=== PATIENT | female | born 1995 | race African-American/Black ===

== ENCOUNTER 2017-05-27 17:13 | Emergency (ER) | payer OTHER ==
[~2017-05-27] VITALS: Ht 154.9 cm; Wt 94.8 kg
[~2017-05-27 17:13] MED LIST: Doxycycline Hyclate PO; FLUT1DIS3 INH; PRED-220 PO; VENTOLIN HFA18 GM INH
--- NOTE | 2017-05-27 19:26 | PHYS DOC ---
Past Medical History Past Medical History: Asthma Additional Past Medical Histor: seasonal allergies Past Surgical History: No Surgical History Alcohol Use: None Drug Use: None Adult General Chief Complaint Chief Complaint: ABDOMINAL PAIN HPI HPI Patient is a 21 year old -[place] who presents with right lower quadrant pain. She states it started about 3 days ago around her bellybutton and now is in the right lower quadrant. She states she's had numerous nonbloody nonbilious vomiting. She denies any constipation or diarrhea. She is also complaining of a mild headache to the frontal aspect of her head. She denies any vaginal bleeding or discharge. Review of Systems Review of Systems Constitutional: Denies fever or chills [] Eyes: Denies change in visual acuity, redness, or eye pain [] HENT: Denies nasal congestion or sore throat [] Respiratory: Denies cough or shortness of breath [] Cardiovascular: No additional information not addressed in HPI [] GI: Positive for abdominal pain, nausea, vomiting, denies any bloody stools or diarrhea [] : Denies dysuria or hematuria [] Musculoskeletal: Denies back pain or joint pain [] Integument: Denies rash or skin lesions [] Neurologic: Denies headache, focal weakness or sensory changes [] Endocrine: Denies polyuria or polydipsia [] Current Medications Current Medications Current Medications Medications (Trade) Dose Ordered Sig/Andrew Start Time Stop Time Status Last Admin Dose Admin Info (Do NOT chart on this entry -- for MONITORING) 1 each PRN DAILY PRN 05/27/17 20:30 05/29/17 20:29 Iohexol (Omnipaque 300 Mg/ml) 75 ml 1X ONCE 05/27/17 20:15 05/27/17 20:16 DC 05/27/17 20:25 75 ML Morphine Sulfate 4 mg 1X ONCE 05/27/17 19:30 05/27/17 19:31 DC 05/27/17 19:34 4 MG Ondansetron HCl (Zofran) 4 mg 1X ONCE 05/27/17 19:30 05/27/17 19:31 DC 05/27/17 19:34 4 MG Sodium Chloride 1,000 ml @ 1,000 mls/hr 1X ONCE 05/27/17 19:45 05/27/17 20:44 DC 05/27/17 19:37 1,000 MLS/HR Allergies Allergies Allergies Coded Allergies Type Severity Reaction Last Updated Verified No Known Drug Allergies 10/02/13 No Physical Exam Physical Exam Constitutional: Well developed, well nourished, no acute distress, non-toxic appearance. [] HENT: Normocephalic, atraumatic, bilateral external ears normal, oropharynx moist, no oral exudates, nose normal. [] Eyes: PERRLA, EOMI, conjunctiva normal, no discharge. [] Neck: Normal range of motion, no tenderness, supple, no stridor. [] Cardiovascular:Heart rate regular rhythm, no murmur [] Lungs & Thorax: Bilateral breath sounds clear to auscultation [] Abdomen/pelvic: Bowel sounds normal, soft, moderate tender to palpation right lower quadrant, no rebound or guarding, no masses, no pulsatile masses. Normal external genitalia, no bleeding noted, no cervical motion tenderness. Skin: Warm, dry, no erythema, no rash. [] Back: No tenderness, no CVA tenderness. [] Extremities: No tenderness, no cyanosis, no clubbing, ROM intact, no edema. [] Neurologic: Alert and oriented X 3, normal motor function, normal sensory function, no focal deficits noted. [] Psychologic: Affect normal, judgement normal, mood normal. [] Current Patient Data Vital Signs Vital Signs Date Time Temp Pulse Resp B/P (MAP) Pulse Ox O2 Delivery O2 Flow Rate FiO2 05/27/17 19:34 18 98 Room Air 05/27/17 19:03 98.7 88 124/60 (81) 98.7 Lab Values Laboratory Tests Test 05/27/17 18:30 05/27/17 18:55 05/27/17 19:30 POC Urine HCG, Qualitative Hcg negative (Negative) Urine Collection Type Unknown Urine Color Yellow Urine Clarity Clear Urine pH 6.5 Urine Specific [place] >=1.030 Urine Protein Negative mg/dL (NEG-TRACE) Urine Glucose (UA) Negative mg/dL (NEG) Urine Ketones (Stick) Negative mg/dL (NEG) Urine Blood Negative (NEG) Urine Nitrite Negative (NEG) Urine Bilirubin Negative (NEG) Urine Urobilinogen Dipstick 0.2 mg/dL (0.2 mg/dL) Urine Leukocyte Esterase Negative (NEG) Urine RBC Occ /HPF (0-2) Urine WBC Occ /HPF (0-4) Urine Squamous Epithelial Cells Occ /LPF Urine Bacteria 0 /HPF (0-FEW) Urine Mucus Slight /LPF Urine Test Negative (NEG) White Blood Count 9.6 x10^3/uL (4.0-11.0) Red Blood Count 4.32 x10^6/uL (3.50-5.40) Hemoglobin 12.4 g/dL (12.0-15.5) Hematocrit 37.8 % (36.0-47.0) Mean Corpuscular Volume 87 fL (79-100) Mean Corpuscular Hemoglobin 29 pg (25-35) Mean Corpuscular Hemoglobin Concent 33 g/dL (31-37) Red Cell Distribution Width 13.1 % (11.5-14.5) Platelet Count 284 x10^3/uL (140-400) Neutrophils (%) (Auto) 60 % (31-73) Lymphocytes (%) (Auto) 29 % (24-48) Monocytes (%) (Auto) 7 % (0-9) Eosinophils (%) (Auto) 4 % (0-3) H Basophils (%) (Auto) 1 % (0-3) Neutrophils # (Auto) 5.8 x10^3uL (1.8-7.7) Lymphocytes # (Auto) 2.8 x10^3/uL (1.0-4.8) Monocytes # (Auto) 0.7 x10^3/uL (0.0-1.1) Eosinophils # (Auto) 0.4 x10^3/uL (0.0-0.7) Basophils # (Auto) 0.1 x10^3/uL (0.0-0.2) Sodium Level 142 mmol/L (136-145) Potassium Level 4.0 mmol/L (3.5-5.1) Chloride Level 105 mmol/L (98-107) Carbon Dioxide Level 31 mmol/L (21-32) Anion Gap 6 (6-14) Blood Urea Nitrogen 7 mg/dL (7-20) Creatinine 0.7 mg/dL (0.6-1.0) Estimated GFR (Cockcroft-Gault) 127.8 Glucose Level 87 mg/dL (70-99) Calcium Level 8.8 mg/dL (8.5-10.1) Total Bilirubin 0.1 mg/dL (0.2-1.0) L Direct Bilirubin 0.1 mg/dL (0.0-0.2) Aspartate Amino Transferase (AST) 16 U/L (15-37) Alanine Aminotransferase (ALT) 21 U/L (14-59) Alkaline Phosphatase 73 U/L (46-116) Total Protein 7.1 g/dL (6.4-8.2) Albumin 3.6 g/dL (3.4-5.0) Lipase 214 U/L (73-393) Laboratory Tests 05/27/17 19:30 Laboratory Tests 05/27/17 19:30 Microbiology 05/27/17 Wet Prep - Final, Complete EKG EKG [] Radiology/Procedures Radiology/Procedures [facility] [address] [place], [place] [id number] IMAGING REPORT Signed PATIENT: NOE JOHNSON ACCOUNT: [id number] : 1995 LOCATION: ER AGE: 21 SEX: F EXAM STATUS: REG ER ORD. PHYSICIAN: THIAGO WHEATLEY MD REASON: abd pain PROCEDURE: CT ABD PELV W/ IV CONTRST ONLY Indication: Right lower quadrant pain for 2 days. Technique: Axial images and coronal and sagittal reformatted images are provided. 75 mL of intravenous Omnipaque 300 was administered without complication. No comparison is available. One or more of the following individualized dose reduction techniques were utilized for this examination: 1. Automated exposure control 2. Adjustment of the mA and/or kV according to patient size 3. Use of iterative reconstruction technique Findings: Lung bases are clear. There is no pleural effusion. Heart is not enlarged. Liver is unremarkable. Gallbladder is normal in appearance. Spleen is not enlarged. Pancreas and adrenals are unremarkable. Kidneys are symmetrically perfused. Aorta is normal caliber. There is no dilated small bowel loop or air-fluid level. Colon is grossly unremarkable. Appendix is normal in appearance, better evaluated on coronal reformats. The tip is difficult to visualize. There is no adjacent inflammatory stranding. Lack of oral contrast limits evaluation of bowel. There is no bladder calculus. There is no adnexal mass. There is no free pelvic fluid. Bony structures are intact. IMPRESSION: 1. No acute abdominal findings. Normal appendix. Electronically signed by: Marlon De La Cruz MD (05/27/2017 8:43 PM) [facility] DICTATED and SIGNED BY: MARLON DE LA CRUZ MD DATE: 05/27/172036 CC: THIAGO WHEATLEY MD; NO PCP ~ RUN DATE: 05/27/17 PAGE 1 RUN TIME: 2007 [facility] [address] [place] [address] Seven Saini M.D., [employer] PATIENT: NOE JOHNSON ACCT: [id number] LOC: PIERO U : [id number] AGE/SX: ROOM: REG : 05/27/[address]: THIAGO WHEATLEY MD : 1995 BED: DIS : STATUS: REG ER TLOC: SPEC #: [id number] KYRIE: 05/27/17 STATUS: COMP REQ #: [id number] RECD: 05/27/[address]: THIAGO WHEATLEY MD SOURCE: VAGINAL ENTR: 05/27/[address]: JEANCARLOS KELLY SPDESC: ORDERED: WET PREP COMMENTS: Has specimen been collected/obtained? Y Procedure Result WET PREP Final YEAST NONE SEEN TRICHOMONAS NONE SEEN CLUE CELLS NONE SEEN WBCS OCCASIONAL RBCS NO RBCS SEEN SQUAMOUS EPS MODERATE END OF REPORT Impressions: Abdominal pain Course & Med Decision Making Course & Med Decision Making Pertinent Labs and Imaging studies reviewed. (See chart for details) Labs are unremarkable. CT of the pelvis does not show acute appendicitis or other abnormalities. Pelvic ultrasound is pending at this time. Patient being checked out to Dr. Valdes for final disposition. Dragon Disclaimer Dragon Disclaimer This electronic medical record was generated, in whole or in part, using a voice recognition dictation system. Departure Departure Referrals: NO PCP (PCP) THIAGO WHEATLEY MD May 27, 2017 19:26
[2017-05-27] MEDS ORDERED: ONDANSETRON PF 4 MG/2 ML VIAL. IV ONE (19:30)
[2017-05-27] MEDS ORDERED: MORPHINE SULFATE 4 MG/ML DISP.SYRIN. IV ONE (19:30)
[2017-05-27 19:44] LABS: BILIRUBIN,URINE NEGATIVE (NEG); GLUCOSE,URINE NEGATIVE (NEG); NITRITE,URINE NEGATIVE (NEG); PH,URINE 6.5; PROTEIN,URINE NEGATIVE (NEG-TRACE); UROBILINOGEN,URINE 0.2 mg/dL (0.2 mg/dL)
[2017-05-27] MEDS ORDERED: IV NORMAL SALINE 1000ML BAG 1,000 ML IV ONE (19:45)
[2017-05-27 19:53] LABS: BASO # 0.1 x10^3/uL (0.0-0.2); BASO % 1 % (0-3); EOS % 4 % (0-3); HEMATOCRIT 37.8 % (36.0-47.0); HEMOGLOBIN 12.4 g/dL (12.0-15.5); LYMPH # 2.8 x10^3/uL (1.0-4.8); LYMPH % 29 % (24-48); MEAN CORPUSCULAR HEMOGLOBIN 29 pg (25-35); MEAN CORPUSCULAR HGB CONC 33 g/dL (31-37); MEAN CORPUSCULAR VOLUME 87 fL (79-100); MONO % 7 % (0-9); NEUT % 60 % (31-73); PLATELET COUNT 284 x10^3/uL (140-400); RED BLOOD COUNT 4.32 x10^6/uL (3.50-5.40); RED CELL DISTRIBUTION WIDTH 13.1 % (11.5-14.5); WHITE BLOOD COUNT 9.6 x10^3/uL (4.0-11.0)
[2017-05-27 20:02] LABS: NEG OBC UR NEG; POS OBC UR POS
[2017-05-27 20:03] LABS: RBC,URINE OCC /HPF (0-2); WBC,URINE OCC /HPF (0-4)
[2017-05-27 20:04] LABS: BACTERIA,URINE 0 /HPF (0-FEW); SQUAMOUS EPITHELIAL CELL,UR OCC /LPF
[2017-05-27 20:05] LABS: CALCIUM 8.8 mg/dL (8.5-10.1); CREATININE 0.7 mg/dL (0.6-1.0); GFR 127.8
[2017-05-27 20:11] LABS: ALBUMIN 3.6 g/dL (3.4-5.0); DIRECT BILIRUBIN 0.1 mg/dL (0.0-0.2); TOTAL BILIRUBIN 0.1 mg/dL (0.2-1.0); TOTAL PROTEIN 7.1 g/dL (6.4-8.2)
[2017-05-27] MEDS ORDERED: IOHEXOL 300 MG/ML 75 ML VIAL IV ONE (20:15)
[2017-05-27] MEDS ORDERED: CONTRAST GIVEN MC PRN (20:30)
--- NOTE | 2017-05-27 20:46 | RAD ---
Indication: Right lower quadrant pain for 2 days. Technique: Axial images and coronal and sagittal reformatted images are provided. 75 mL of intravenous Omnipaque 300 was administered without complication. No comparison is available. One or more of the following individualized dose reduction techniques were utilized for this examination: 1. Automated exposure control 2. Adjustment of the mA and/or kV according to patient size 3. Use of iterative reconstruction technique Findings: Lung bases are clear. There is no pleural effusion. Heart is not enlarged. Liver is unremarkable. Gallbladder is normal in appearance. Spleen is not enlarged. Pancreas and adrenals are unremarkable. Kidneys are symmetrically perfused. Aorta is normal caliber. There is no dilated small bowel loop or air-fluid level. Colon is grossly unremarkable. Appendix is normal in appearance, better evaluated on coronal reformats. The tip is difficult to visualize. There is no adjacent inflammatory stranding. Lack of oral contrast limits evaluation of bowel. There is no bladder calculus. There is no adnexal mass. There is no free pelvic fluid. Bony structures are intact. IMPRESSION: 1. No acute abdominal findings. Normal appendix. Electronically signed by: Marlon De La Cruz MD (05/27/2017 8:43 PM) [facility]
--- NOTE | 2017-05-27 21:46 | RAD ---
Pelvic ultrasound History: Pelvic pain. Comparison: None. Technique: Transabdominal ultrasound was performed to evaluate the uterine fundus. Endovaginal imaging was performed to evaluate optimally the endometrial canal and lower uterine segment. TRANSABDOMINAL IMAGING Findings: The uterus measures 8.4 cm in length and is unremarkable. The endometrium appears unremarkable. Neither ovary is visualized. ENDOVAGINAL IMAGING Findings: The uterus measures 8.8 cm in length and is unremarkable. The endometrium measures 9 mm. Right ovary measures 3.7 x 1.7 x 1.5 cm and demonstrates several small follicles. The left ovary measures 2.0 x 4.1 x 2.0 cm and demonstrates several small follicles. No adnexal masses are identified. Small amount of physiologic free fluid is present in the pelvis. Both ovaries demonstrate normal vascular flow upon Doppler interrogation and are without evidence of torsion. Impression: 1. Unremarkable pelvic ultrasound. Electronically signed by: Jordi Verduzco MD (05/27/2017 9:43 PM) [facility]
[2017-05-27 22:30] VITALS: BP 121/62
== END 2017-05-27 22:50 | disposition home or self-care (01) ==
LOC: ER 17:13
DX: R10.31 Right lower quadrant pain (principal); R51 Headache; R11.10 Vomiting, unspecified; J45.909 Unspecified asthma, uncomplicated
CPT/HCPCS: 36415; 74177; 76856; 80048; 80076; 81001; 81025; 83690; 85025; 87491; 87591; 96361; 96374; 96375; 99285; J2270; J2405; J7030; Q0111; Q9967

== ENCOUNTER 2017-12-09 16:34 | Emergency (ER) | payer SELFPAY, OTHER ==
[2017-12-09 17:06] LABS: URINE HCG POC HCG NEGATIVE (Negative)
[2017-12-09 17:31] LABS: ADD MAN DIFF? NO; BILIRUBIN,URINE NEGATIVE (NEG); CLARITY,URINE CLOUDY; COLOR,URINE YELLOW; GLUCOSE,URINE NEGATIVE (NEG); NITRITE,URINE NEGATIVE (NEG); PROTEIN,URINE NEGATIVE (NEG-TRACE); UROBILINOGEN,URINE 0.2 mg/dL (0.2 mg/dL)
[2017-12-09 17:33] LABS: BASO # 0.1 x10^3/uL (0.0-0.2); BASO % 1 % (0-3); EOS # 0.5 x10^3/uL (0.0-0.7); EOS % 7 % (0-3); HEMATOCRIT 41.6 % (36.0-47.0); HEMOGLOBIN 13.9 g/dL (12.0-15.5); LYMPH # 2.2 x10^3/uL (1.0-4.8); LYMPH % 31 % (24-48); MEAN CORPUSCULAR HEMOGLOBIN 29 pg (25-35); MEAN CORPUSCULAR HGB CONC 33 g/dL (31-37); MEAN CORPUSCULAR VOLUME 87 fL (79-100); MONO # 0.5 x10^3/uL (0.0-1.1); MONO % 7 % (0-9); NEUT # 3.8 x10^3uL (1.8-7.7); NEUT % 54 % (31-73); PLATELET COUNT 295 x10^3/uL (140-400); RED BLOOD COUNT 4.81 x10^6/uL (3.50-5.40); RED CELL DISTRIBUTION WIDTH 13.2 % (11.5-14.5); WHITE BLOOD COUNT 7.1 x10^3/uL (4.0-11.0)
[2017-12-09] MEDS: IPRATRPIUM/ALBUTEROL 0.5/2.5MG 3 ML NEBU. NEB (17:40)
[2017-12-09] MEDS ORDERED: CONTRAST GIVEN MC (17:45)
[2017-12-09] MEDS: methylPREDNISolone SOD SUCC PF 125 MG/2 ML VIAL. IV (17:51)
[2017-12-09] MEDS: IV NORMAL SALINE 1000ML BAG 1,000 ML IV (17:52)
[2017-12-09 17:53] LABS: ANION GAP 12 (6-14); BLOOD UREA NITROGEN 8 mg/dL (7-20); BUN/CREATININE RATIO 11 (6-20); CALCIUM 9.2 mg/dL (8.5-10.1); CARBON DIOXIDE 25 mmol/L (21-32); CHLORIDE 106 mmol/L (98-107); CREATININE 0.7 mg/dL (0.6-1.0); GFR 126.6; GLUCOSE 90 mg/dL (70-99); POTASSIUM 4.2 mmol/L (3.5-5.1); SODIUM 143 mmol/L (136-145)
[2017-12-09 17:56] LABS: AMORPHOUS SEDIMENT,UR PRESENT /HPF; BACTERIA,URINE 0 /HPF (0-FEW); RBC,URINE 0 /HPF (0-2); SQUAMOUS EPITHELIAL CELL,UR OCC /LPF; WBC,URINE OCC /HPF (0-4)
[2017-12-09 17:58] LABS: ALBUMIN 3.7 g/dL (3.4-5.0); ALBUMIN/GLOBULIN RATIO 0.9 (1.0-1.7); ALK PHOS 67 U/L (46-116); ALT (SGPT) 20 U/L (14-59); AST (SGOT) 16 U/L (15-37); LIPASE 169 U/L (73-393); TOTAL BILIRUBIN 0.1 mg/dL (0.2-1.0); TOTAL PROTEIN 7.8 g/dL (6.4-8.2)
[2017-12-09] MEDS: IOHEXOL 300 MG/ML 100ML VIAL. IV (18:15)
== END 2017-12-09 19:25 | disposition home or self-care (01) ==
LOC: ER 16:34
DX: J06.9 Acute upper respiratory infection, unspecified (principal); J45.901 Unspecified asthma with (acute) exacerbation; R10.31 Right lower quadrant pain; R10.11 Right upper quadrant pain
CPT/HCPCS: 36415; 74177; 80053; 81001; 81025; 83690; 85025; 94640; 96361; 96374; 99285-25; J2930; J7030; J7620; Q9967

== ENCOUNTER 2018-01-27 08:40 | Emergency (ER) | payer SELFPAY ==
[2018-01-27 09:04] LABS: URINE HCG POC HCG POSITIVE (Negative)
[2018-01-27 09:11] LABS: BILIRUBIN,URINE NEGATIVE (NEG); CLARITY,URINE CLEAR; COLOR,URINE YELLOW; GLUCOSE,URINE NEGATIVE (NEG); NITRITE,URINE NEGATIVE (NEG); PH,URINE 7.5; PROTEIN,URINE NEGATIVE (NEG-TRACE); UROBILINOGEN,URINE 0.2 mg/dL (0.2 mg/dL)
[2018-01-27 09:21] LABS: BACTERIA,URINE FEW /HPF (0-FEW); SQUAMOUS EPITHELIAL CELL,UR OCC /LPF; WBC,URINE RARE /HPF (0-4)
[2018-01-27 09:23] LABS: NEG OBC UR NEG; POS OBC UR POS; U PREG PATIENT POSITIVE (NEG)
[2018-01-28 14:34] LABS: CHLAMYDIA PROBE Negative (Negative); GC PROBE Negative (Negative)
[2018-01-29 14:06] LABS: STREP B BY PCR SEE SEPARATE REPORT
== END 2018-01-27 11:46 | disposition home or self-care (01) ==
LOC: ER 08:40
DX: O20.0 Threatened abortion (principal); O99.511 Diseases of the respiratory system complicating pregnancy, first trimester; J45.909 Unspecified asthma, uncomplicated; Z3A.01 Less than 8 weeks gestation of pregnancy
CPT/HCPCS: 36415; 76801; 76817; 81001; 81025; 84702; 84703; 86850; 86900; 86901; 87491; 87591; 87653; 99285-25; Q0111

== ENCOUNTER 2018-01-27 22:26 | Emergency (ER) | payer SELFPAY ==
[2018-01-27] MEDS: fentaNYL PF VIAL 100 MCG/2 ML VIAL IV (23:52)
[2018-01-27] MEDS: IV NORMAL SALINE 1000ML BAG 1,000 ML IV (23:52)
[2018-01-27] MEDS: ONDANSETRON PF 4 MG/2 ML VIAL. IV (23:52)
[2018-01-28 00:07] LABS: AGAP ISTAT 16 mmol/L (6-14); BUN ISTAT 4 mg/dL (8-26); CHLORIDE ISTAT 106 mmol/L (98-110); CREATININE ISTAT 0.5 mg/dL (0.5-1.4); GLUCOSE ISTAT 82 mg/dL (70-99); HEMATOCRIT ISTAT 39 % (36-40); HEMOGLOBIN ISTAT 13.3 g/dL (12-15); ION CA ISTAT 1.12 mmol/L (1.13-1.32); POTASSIUM ISTAT 3.4 mmol/L (3.5-5.0); SODIUM ISTAT 142 mmol/L (135-145); TOT CO2 ISTAT 25 mmol/L (23-32)
[2018-01-28] MEDS: IBUPROFEN 600 MG TABLET. PO (00:53)
[2018-01-28] MEDS: oxyCODONE/APAP 7.5/325 1 TAB TABLET PO (00:53)
[2018-01-28] MEDS: fentaNYL PF VIAL 100 MCG/2 ML VIAL IV (00:54)
== END 2018-01-28 01:09 | disposition home or self-care (01) ==
LOC: ER 01-28 01:09
DX: O03.9 Complete or unspecified spontaneous abortion without complication (principal); O99.511 Diseases of the respiratory system complicating pregnancy, first trimester; J45.909 Unspecified asthma, uncomplicated; Z3A.00 Weeks of gestation of pregnancy not specified
CPT/HCPCS: 76801; 80047; 96361; 96374; 96375; 99284-25; J2405; J3010; J7030

== ENCOUNTER 2018-02-24 15:48 | Emergency (ER) | payer SELFPAY ==
[2018-02-24] MEDS: IPRATRPIUM/ALBUTEROL 0.5/2.5MG 3 ML NEBU. NEB ×2 (16:35)
[2018-02-24] MEDS: predniSONE 10 MG TABLET PO (16:47)
== END 2018-02-24 17:52 | disposition home or self-care (01) ==
LOC: ER 15:48
DX: J45.901 Unspecified asthma with (acute) exacerbation (principal)
CPT/HCPCS: 94640; 99284; J7512; J7620

== ENCOUNTER 2018-04-03 14:49 | Emergency (ER) | payer SELFPAY ==
[2018-04-03] MEDS: PENICILLIN G BENZATHINE LA 1,200,000 UNIT/2 ML DISP.SYRIN. IM (15:49)
== END 2018-04-03 16:45 | disposition home or self-care (01) ==
LOC: ER 16:45
DX: J02.9 Acute pharyngitis, unspecified (principal)
CPT/HCPCS: 96372; 99283; J0561

== ENCOUNTER 2018-07-06 13:45 | Emergency (ER) | payer OTHER ==
[~2018-07-06] VITALS: Ht 154.9 cm; Wt 88.0 kg
[~2018-07-06 13:45] MED LIST changes: +ALBU2.5V14 NEB; +AMOX875T PO; +ONDA4TAB10 PO; +OXYC-327 PO; +PRED20TA PO; +PRED50TA PO; +PROAIR HFA8.5 GM INH
[2018-07-06 14:55] LABS: BILIRUBIN,URINE NEGATIVE (NEG); CLARITY,URINE CLEAR; COLOR,URINE YELLOW; NITRITE,URINE NEGATIVE (NEG); PROTEIN,URINE NEGATIVE (NEG-TRACE); UROBILINOGEN,URINE 0.2 mg/dL (0.2 mg/dL)
[2018-07-06 15:22] LABS: BACTERIA,URINE 0 /HPF (0-FEW); RBC,URINE OCC /HPF (0-2); SQUAMOUS EPITHELIAL CELL,UR FEW /LPF; WBC,URINE OCC /HPF (0-4)
[2018-07-06 15:28] LABS: BASO # 0.1 x10^3/uL (0.0-0.2); BASO % 1 % (0-3); EOS # 0.4 x10^3/uL (0.0-0.7); EOS % 5 % (0-3); HEMATOCRIT 38.2 % (36.0-47.0); LYMPH # 2.1 x10^3/uL (1.0-4.8); LYMPH % 24 % (24-48); MEAN CORPUSCULAR HEMOGLOBIN 30 pg (25-35); MEAN CORPUSCULAR HGB CONC 34 g/dL (31-37); MEAN CORPUSCULAR VOLUME 87 fL (79-100); MONO # 0.7 x10^3/uL (0.0-1.1); MONO % 8 % (0-9); NEUT # 5.3 x10^3uL (1.8-7.7); NEUT % 62 % (31-73); PLATELET COUNT 269 x10^3/uL (140-400); RED CELL DISTRIBUTION WIDTH 13.2 % (11.5-14.5); WHITE BLOOD COUNT 8.5 x10^3/uL (4.0-11.0)
[2018-07-06 15:45] LABS: CALCIUM 9.3 mg/dL (8.5-10.1); CREATININE 0.5 mg/dL (0.6-1.0); GFR 186.7; POTASSIUM 3.4 mmol/L (3.5-5.1)
[2018-07-06 15:50] LABS: ALBUMIN 3.6 g/dL (3.4-5.0); ALBUMIN/GLOBULIN RATIO 0.9 (1.0-1.7); TOTAL BILIRUBIN 0.2 mg/dL (0.2-1.0); TOTAL PROTEIN 7.8 g/dL (6.4-8.2)
--- NOTE | 2018-07-06 16:06 | PHYS DOC ---
Past Medical History Past Medical History: No Pertinent History, Asthma Additional Past Medical Histor: seasonal allergies Past Surgical History: No Surgical History Alcohol Use: None Drug Use: None Adult General Chief Complaint Chief Complaint: ABDOMINAL PAIN IN HPI HPI Patient is a 22 year old female with no significant medical history who presents today complaining of abdominal cramping and . Patient is also complaining of spotting yesterday. Patient states she is roughly 10 weeks 4 para 3. She states she's had one miscarriage. Patient denies any nausea vomiting. Denies any concerns for STDs. Review of Systems Review of Systems Constitutional: Denies fever or chills [] Eyes: Denies change in visual acuity, redness, or eye pain [] HENT: Denies nasal congestion or sore throat [] Respiratory: Denies cough or shortness of breath [] Cardiovascular: No additional information not addressed in HPI [] GI: Reports abdominal pain and vaginal spotting in , denies, nausea, vomiting, bloody stools or diarrhea [] : Denies dysuria or hematuria [] Musculoskeletal: Denies back pain or joint pain [] Integument: Denies rash or skin lesions [] Neurologic: Denies headache, focal weakness or sensory changes [] Endocrine: Denies polyuria or polydipsia [] All other systems were reviewed and found to be within normal limits, except as documented in this note. Allergies Allergies Allergies Coded Allergies Type Severity Reaction Last Updated Verified No Known Drug Allergies 10/02/13 No Physical Exam Physical Exam Constitutional: Well developed, well nourished, no acute distress, non-toxic appearance. [] HENT: Normocephalic, atraumatic, bilateral external ears normal, oropharynx moist, no oral exudates, nose normal. [] Eyes: PERRLA, EOMI, conjunctiva normal, no discharge. [] Neck: Normal range of motion, no tenderness, supple, no stridor. [] Cardiovascular:Heart rate regular rhythm, no murmur [] Lungs & Thorax: Bilateral breath sounds clear to auscultation [] Abdomen: Bowel sounds normal, soft, no tenderness, no masses, no pulsatile masses. [] Pelvic exam External pelvic appears normal, cervix is closed, no CMT, no adnexal tenderness , no vaginal bleeding, trace amount of white discharge in the vaginal vault Skin: Warm, dry, no erythema, no rash. [] Back: No tenderness, no CVA tenderness. [] Extremities: No tenderness, no cyanosis, no clubbing, ROM intact, no edema. [] Neurologic: Alert and oriented X 3, normal motor function, normal sensory function, no focal deficits noted. [] Psychologic: Affect normal, judgement normal, mood normal. [] Current Patient Data Vital Signs Vital Signs Date Time Temp Pulse Resp B/P (MAP) Pulse Ox O2 Delivery O2 Flow Rate FiO2 07/06/18 14:48 98.5 100 18 138/77 (97) 100 Room Air 98.5 Lab Values Laboratory Tests Test 07/06/18 14:35 07/06/18 14:45 07/06/18 14:50 Urine Collection Type Unknown Urine Color Yellow Urine Clarity Clear Urine pH 8.0 Urine Specific [place] 1.025 Urine Protein Negative mg/dL (NEG-TRACE) Urine Glucose (UA) Negative mg/dL (NEG) Urine Ketones (Stick) Negative mg/dL (NEG) Urine Blood Negative (NEG) Urine Nitrite Negative (NEG) Urine Bilirubin Negative (NEG) Urine Urobilinogen Dipstick 0.2 mg/dL (0.2 mg/dL) Urine Leukocyte Esterase Negative (NEG) Urine RBC Occ /HPF (0-2) Urine WBC Occ /HPF (0-4) Urine Squamous Epithelial Cells Few /LPF Urine Bacteria 0 /HPF (0-FEW) Urine Mucus Marked /LPF POC Urine HCG, Qualitative Hcg positive (Negative) White Blood Count 8.5 x10^3/uL (4.0-11.0) Red Blood Count 4.40 x10^6/uL (3.50-5.40) Hemoglobin 13.0 g/dL (12.0-15.5) Hematocrit 38.2 % (36.0-47.0) Mean Corpuscular Volume 87 fL (79-100) Mean Corpuscular Hemoglobin 30 pg (25-35) Mean Corpuscular Hemoglobin Concent 34 g/dL (31-37) Red Cell Distribution Width 13.2 % (11.5-14.5) Platelet Count 269 x10^3/uL (140-400) Neutrophils (%) (Auto) 62 % (31-73) Lymphocytes (%) (Auto) 24 % (24-48) Monocytes (%) (Auto) 8 % (0-9) Eosinophils (%) (Auto) 5 % (0-3) H Basophils (%) (Auto) 1 % (0-3) Neutrophils # (Auto) 5.3 x10^3uL (1.8-7.7) Lymphocytes # (Auto) 2.1 x10^3/uL (1.0-4.8) Monocytes # (Auto) 0.7 x10^3/uL (0.0-1.1) Eosinophils # (Auto) 0.4 x10^3/uL (0.0-0.7) Basophils # (Auto) 0.1 x10^3/uL (0.0-0.2) Maternal Serum HCG Beta Subunit 740050 mIU/mL (0-5) H Sodium Level 138 mmol/L (136-145) Potassium Level 3.4 mmol/L (3.5-5.1) L Chloride Level 102 mmol/L (98-107) Carbon Dioxide Level 26 mmol/L (21-32) Anion Gap 10 (6-14) Blood Urea Nitrogen 4 mg/dL (7-20) L Creatinine 0.5 mg/dL (0.6-1.0) L Estimated GFR (Cockcroft-Gault) 186.7 BUN/Creatinine Ratio 8 (6-20) Glucose Level 66 mg/dL (70-99) L Calcium Level 9.3 mg/dL (8.5-10.1) Total Bilirubin 0.2 mg/dL (0.2-1.0) Aspartate Amino Transferase (AST) 16 U/L (15-37) Alanine Aminotransferase (ALT) 19 U/L (14-59) Alkaline Phosphatase 48 U/L (46-116) Total Protein 7.8 g/dL (6.4-8.2) Albumin 3.6 g/dL (3.4-5.0) Albumin/Globulin Ratio 0.9 (1.0-1.7) L Laboratory Tests 07/06/18 14:50 Laboratory Tests 07/06/18 14:50 Microbiology 07/06/18 Wet Prep - Final, Complete EKG EKG [] Radiology/Procedures Radiology/Procedures []PROCEDURE: OB <14 WKS W/TV EXAM: Obstetrics sonogram. HISTORY: Pain. TECHNIQUE: Transabdominal and transvaginal sonographic imaging of the pelvis was performed. COMPARISON: None. FINDINGS: There is a single intrauterine gestational sac and pole with yolk sac. The crown-rump length is 2.31 cm, corresponding with an estimated gestational age of 9 weeks and 0 days. The heart rate is 173 bpm. The DAVID is 02/08/2019. The uterus measures 10.4 x 8.1 x 5.7 cm. The cervix is closed and measures 4.3 cm in length. The gestational sac is normal in configuration. No subchorionic hematoma is seen. The amniotic fluid volume is grossly normal. The ovaries are normal in size and demonstrate normal blood flow. IMPRESSION: Single intrauterine fetus with an estimated gestational age of 9 weeks and 0 days and heart rate of 173 bpm. There is no sonographic finding to correlate with reported pain. Electronically signed by: Brandy Rosa MD (07/06/2018 4:18 PM) [facility] DICTATED and SIGNED BY: BRANDY ROSA MD DATE: 07/06/18 1616 Course & Med Decision Making Course & Med Decision Making Pertinent Labs and Imaging studies reviewed. (See chart for details) This is a 22-year-old female patient presented to the ED today with complaints of abdominal pain in , and sporting yesterday. Positive urine hCG, beta -hCG 121,688, CBC CMP with no acute findings, urine analysis is negative for infection, OB ultrasound noted for IUP 9 weeks 0 days, heartbeat 173. Wet prep positive for BV-patient will be discharged and Flagyl. Blood group O+. Follow- up with OB in the next 2 days. Pelvic rest recommended. Return precautions provided. Dragon Disclaimer Dragon Disclaimer This electronic medical record was generated, in whole or in part, using a voice recognition dictation system. Departure Departure Impression: Primary Impression: Abdominal pain during Additional Impressions: Threatened miscarriage Bacterial vaginosis Disposition: HOME, SELF-CARE Condition: STABLE Referrals: NO PCP (PCP) WILIAN MORENO MD Follow-up in 2 days Patient Instructions: Bacterial Vaginosis, [id number], Threatened Miscarriage , [id number] Additional Instructions: You were evaluated in the emergency room for abdominal pain/cramping in and some bleeding. You are 9 weeks . We highly recommend you follow-up with your F[employer]ELANCE MAKEUP ARTIST in the next 2 days. If you do not have an FREELANCE MAKEUP ARTIST use the one provided. Maintain pelvic rest including no sex until you're seen by the FREELANCE MAKEUP ARTIST, do not do any strenuous activities. Come back to the emergency room at any point your symptoms worsen. Scripts Metronidazole (FLAGYL) 500 Mg Tablet 1 TAB PO BID, #14 TAB Prov: ANSON STORY APRN 07/06/18 Problem Qualifiers Primary Impression: Abdominal pain during Trimester: first trimester Qualified Codes: O26.891 - Other specified related conditions, first trimester; R10.9 - Unspecified abdominal pain ANSON STORY [employer] ESTATE ASSISTANT Jul 06, 2018 16:06
--- NOTE | 2018-07-06 16:22 | RAD ---
EXAM: Obstetrics sonogram. HISTORY: Pain. TECHNIQUE: Transabdominal and transvaginal sonographic imaging of the pelvis was performed. COMPARISON: None. FINDINGS: There is a single intrauterine gestational sac and pole with yolk sac. The crown-rump length is 2.31 cm, corresponding with an estimated gestational age of 9 weeks and 0 days. The heart rate is 173 bpm. The DAVID is 02/08/2019. The uterus measures 10.4 x 8.1 x 5.7 cm. The cervix is closed and measures 4.3 cm in length. The gestational sac is normal in configuration. No subchorionic hematoma is seen. The amniotic fluid volume is grossly normal. The ovaries are normal in size and demonstrate normal blood flow. IMPRESSION: Single intrauterine fetus with an estimated gestational age of 9 weeks and 0 days and heart rate of 173 bpm. There is no sonographic finding to correlate with reported pain. Electronically signed by: Brandy Rosa MD (07/06/2018 4:18 PM) [id number]
[2018-07-06] MEDS ORDERED: METR500T PO (17:13)
[2018-07-06 17:40] VITALS: BP 112/58
[2018-07-07 14:32] LABS: GC PROBE Negative (Negative)
== END 2018-07-06 17:45 | disposition home or self-care (01) ==
LOC: ER 13:45
DX: O20.0 Threatened abortion (principal); O23.591 Infection of other part of genital tract in pregnancy, first trimester; N76.0 Acute vaginitis; B96.89 Other specified bacterial agents as the cause of diseases classified elsewhere; R10.9 Unspecified abdominal pain; O99.512 Diseases of the respiratory system complicating pregnancy, second trimester; J45.909 Unspecified asthma, uncomplicated; Z3A.09 9 weeks gestation of pregnancy
CPT/HCPCS: 36415; 76801; 76817; 80053; 81001; 81025; 84702; 85025; 86850; 86900; 86901; 87491; 87591; 99285; Q0111

== ENCOUNTER 2018-08-25 13:46 | Emergency (ER) | payer OTHER ==
[~2018-08-25] VITALS: Ht 154.9 cm; Wt 85.3 kg
[~2018-08-25 13:46] MED LIST changes: +METR500T PO
[2018-08-25] MEDS ORDERED: IV NORMAL SALINE 1000ML BAG 1,000 ML IV SCH (14:12)
[2018-08-25] MEDS ORDERED: MAALOX:LIDO:APAP 6:2:1 ORAL SUSPENSION 180 ML BOTTLE. PO ONE (14:15)
[2018-08-25 14:28] LABS: BASO # 0.1 x10^3/uL (0.0-0.2); BASO % 1 % (0-3); EOS # 0.2 x10^3/uL (0.0-0.7); EOS % 2 % (0-3); HEMATOCRIT 36.2 % (36.0-47.0); HEMOGLOBIN 12.3 g/dL (12.0-15.5); LYMPH # 1.7 x10^3/uL (1.0-4.8); LYMPH % 22 % (24-48); MEAN CORPUSCULAR HEMOGLOBIN 30 pg (25-35); MEAN CORPUSCULAR HGB CONC 34 g/dL (31-37); MEAN CORPUSCULAR VOLUME 87 fL (79-100); MONO # 0.4 x10^3/uL (0.0-1.1); MONO % 6 % (0-9); NEUT # 5.3 x10^3uL (1.8-7.7); NEUT % 69 % (31-73); PLATELET COUNT 220 x10^3/uL (140-400); RED BLOOD COUNT 4.17 x10^6/uL (3.50-5.40); RED CELL DISTRIBUTION WIDTH 12.7 % (11.5-14.5); WHITE BLOOD COUNT 7.7 x10^3/uL (4.0-11.0)
[2018-08-25] MEDS ORDERED: LIDOCAINE 2% VISCOUS 15 ML SOLUTION. SWSW ONE (14:30)
[2018-08-25] MEDS ORDERED: ACETAMINOPHEN 650 MG/20.3 ML SOLUTION. PO ONE (14:30)
[2018-08-25] MEDS ORDERED: MAG HYDROX/ALUMINUM HYD/SIMETH 30 ML ORAL.SUSP PO ONE (14:30)
[2018-08-25 14:37] LABS: CALCIUM 8.5 mg/dL (8.5-10.1); CREATININE 0.5 mg/dL (0.6-1.0); GFR 186.7; POTASSIUM 3.4 mmol/L (3.5-5.1)
[2018-08-25 14:44] LABS: BILIRUBIN,URINE NEGATIVE (NEG); CLARITY,URINE TURBID; COLOR,URINE YELLOW; NITRITE,URINE NEGATIVE (NEG); PROTEIN,URINE NEGATIVE (NEG-TRACE); UROBILINOGEN,URINE 0.2 mg/dL (0.2 mg/dL)
[2018-08-25 14:44] LABS: ALBUMIN 3.1 g/dL (3.4-5.0); ALBUMIN/GLOBULIN RATIO 0.7 (1.0-1.7); TOTAL BILIRUBIN 0.2 mg/dL (0.2-1.0); TOTAL PROTEIN 7.3 g/dL (6.4-8.2)
--- NOTE | 2018-08-25 14:46 | PHYS DOC ---
Past Medical History Past Medical History: Asthma Additional Past Medical Histor: seasonal allergies Past Surgical History: No Surgical History Alcohol Use: None Drug Use: None Adult General Chief Complaint Chief Complaint: ABDOMINAL PAIN IN HPI HPI Patient is a 22-year-old female, who states she is approximately 17 weeks based on LMP, who presents to the emergency department for evaluation. She states that since this morning she has been having central/upper abdominal discomfort, described as sharp is nonradiating. She has not had any nausea, vomiting, or diarrhea. She has seen an SUPPLIER SPECIALIST for this , but she has not yet had an ultrasound. She has had some other routine care however. She has not had any vaginal bleeding or discharge, or urinary symptoms. Her pain is mostly in her epigastric area. She has not had any urinary symptoms. There are no alleviating or exacerbating factors to the patient's symptoms. This is the patient's fifth . She states that she had a first trimester miscarriage several months ago, and has had 3 term deliveries. Patient's blood type is O+ based on prior testing. Review of Systems Review of Systems Constitutional: Denies fever or chills [] Eyes: Denies change in visual acuity, redness, or eye pain [] HENT: Denies nasal congestion or sore throat [] Respiratory: Denies cough or shortness of breath [] Cardiovascular: The patient denies any shortness of breath, chest pain, palpitations, or orthopnea[] GI: As per history of present illness[] : Denies dysuria or hematuria, vaginal bleeding or discharge. [] Musculoskeletal: Denies back pain or joint pain [] Integument: Denies rash or skin lesions [] Neurologic: Denies headache, focal weakness or sensory changes [] Endocrine: Denies polyuria or polydipsia [] All other systems were reviewed and found to be within normal limits, except as documented in this note. Current Medications Current Medications Current Medications Medications (Trade) Dose Ordered Sig/Andrew Start Time Stop Time Status Last Admin Dose Admin Acetaminophen (Tylenol) 650 mg 1X ONCE 08/25/18 14:30 08/25/18 14:31 DC 08/25/18 15:06 650 MG Al Hydroxide/Mg Hydroxide (Mylanta Plus Xs) 30 ml 1X ONCE 08/25/18 14:30 08/25/18 14:31 DC 08/25/18 15:04 30 ML Lidocaine HCl (Viscous Lidocaine) 15 ml 1X ONCE 08/25/18 14:30 08/25/18 14:31 DC 08/25/18 15:04 15 ML Multi-Ingredient Mouthwash/Gargle (Velvet Glove Oral Susp) 10 ml 1X ONCE 08/25/18 14:15 08/25/18 14:16 UNV Sodium Chloride 1,000 ml @ 1,000 mls/hr Q1H 08/25/18 14:12 08/25/18 15:11 DC 08/25/18 15:03 1,000 MLS/HR Allergies Allergies Allergies Coded Allergies Type Severity Reaction Last Updated Verified No Known Drug Allergies 10/02/13 No Physical Exam Physical Exam PHYSICAL EXAM: CONSTITUTIONAL: Well developed, well nourished HEAD: normocephalic, atraumatic EENT: PERRL, EOMI. Conjunctivae normal color, sclerae non-icteric; moist mucous membranes. NECK: Supple, non-tender; no meningismus. LUNGS: Lungs CTA, breathing even and unlabored. Normal air movement. HEART: Regular rate and rhythm, no murmur CHEST: No deformity; non-tender ABDOMEN: The abdomen is soft, there is very mild epigastric/central abdominal tenderness to palpation, the right upper quadrant itself is relatively nontender , Ford's sign is absent. The mid and lower abdomen are soft and non-tender, no masses or bruits. The uterus is palpable in the lower abdomen is nontender. The right lower quadrant itself is nontender. EXTREM: Normal ROM; no deformity, no calf tenderness. Normal pulses palpable in all extremities. There is no pedal edema. SKIN: No rash; no diaphoresis NEURO: Alert; normal speech and cognition; CN's grossly intact; strength grossly intact without focal deficit. BACK: No CVA TTP. Current Patient Data Vital Signs Vital Signs Date Time Temp Pulse Resp B/P (MAP) Pulse Ox O2 Delivery O2 Flow Rate FiO2 08/25/18 15:08 86 16 120/58 (78) 100 Room Air 08/25/18 14:05 98.8 98.8 Lab Values Laboratory Tests Test 08/25/18 14:00 08/25/18 14:09 Urine Collection Type Void Urine Color Yellow Urine Clarity Turbid Urine pH 8.0 Urine Specific [place] 1.020 Urine Protein Negative mg/dL (NEG-TRACE) Urine Glucose (UA) Negative mg/dL (NEG) Urine Ketones (Stick) Negative mg/dL (NEG) Urine Blood Negative (NEG) Urine Nitrite Negative (NEG) Urine Bilirubin Negative (NEG) Urine Urobilinogen Dipstick 0.2 mg/dL (0.2 mg/dL) Urine Leukocyte Esterase Negative (NEG) Urine RBC 0 /HPF (0-2) Urine WBC 0 /HPF (0-4) Urine Squamous Epithelial Cells Occ /LPF Urine Amorphous Sediment Present /HPF Urine Bacteria 0 /HPF (0-FEW) White Blood Count 7.7 x10^3/uL (4.0-11.0) Red Blood Count 4.17 x10^6/uL (3.50-5.40) Hemoglobin 12.3 g/dL (12.0-15.5) Hematocrit 36.2 % (36.0-47.0) Mean Corpuscular Volume 87 fL (79-100) Mean Corpuscular Hemoglobin 30 pg (25-35) Mean Corpuscular Hemoglobin Concent 34 g/dL (31-37) Red Cell Distribution Width 12.7 % (11.5-14.5) Platelet Count 220 x10^3/uL (140-400) Neutrophils (%) (Auto) 69 % (31-73) Lymphocytes (%) (Auto) 22 % (24-48) L Monocytes (%) (Auto) 6 % (0-9) Eosinophils (%) (Auto) 2 % (0-3) Basophils (%) (Auto) 1 % (0-3) Neutrophils # (Auto) 5.3 x10^3uL (1.8-7.7) Lymphocytes # (Auto) 1.7 x10^3/uL (1.0-4.8) Monocytes # (Auto) 0.4 x10^3/uL (0.0-1.1) Eosinophils # (Auto) 0.2 x10^3/uL (0.0-0.7) Basophils # (Auto) 0.1 x10^3/uL (0.0-0.2) Maternal Serum HCG Beta Subunit 66966 mIU/mL (0-5) H Sodium Level 138 mmol/L (136-145) Potassium Level 3.4 mmol/L (3.5-5.1) L Chloride Level 104 mmol/L (98-107) Carbon Dioxide Level 23 mmol/L (21-32) Anion Gap 11 (6-14) Blood Urea Nitrogen 5 mg/dL (7-20) L Creatinine 0.5 mg/dL (0.6-1.0) L Estimated GFR (Cockcroft-Gault) 186.7 BUN/Creatinine Ratio 10 (6-20) Glucose Level 79 mg/dL (70-99) Calcium Level 8.5 mg/dL (8.5-10.1) Total Bilirubin 0.2 mg/dL (0.2-1.0) Aspartate Amino Transferase (AST) 17 U/L (15-37) Alanine Aminotransferase (ALT) 17 U/L (14-59) Alkaline Phosphatase 48 U/L (46-116) Total Protein 7.3 g/dL (6.4-8.2) Albumin 3.1 g/dL (3.4-5.0) L Albumin/Globulin Ratio 0.7 (1.0-1.7) L Lipase 169 U/L (73-393) Laboratory Tests 08/25/18 14:09 Laboratory Tests 08/25/18 14:09 EKG EKG [] Radiology/Procedures Radiology/Procedures [PROCEDURE: OB LIMITED OB ULTRASOUND, Limited Clinical Indication: Abdominal pain since this am Comparison: None. Technique: Multiple grayscale images, color Doppler, and M-mode images of the uterus are obtained. Findings: There is a single intrauterine gestation in variable presentation. The placenta is anterior in location. No obvious evidence of placenta previa. The amount of amniotic fluid appears appropriate. Cervical length is 4.6 cm. Biometrical data: BPD = 3.3 cm for 16 weeks 2 days. HC = 12.7 cm for 16 weeks 3 days. AC = 10.5 cm for 16 weeks 3 days. FL = 2 cm for 16 weeks 0 days. HC/AC ratio = 1.20. Overall, the estimated sonographic gestational age is 16 weeks and 2 days for an estimated date of delivery of February 07, 2019. Estimated weight is 150 +/- 22 grams. The estimated heart rate is 168 beats per minute. A anatomic survey is not performed. Impression: Single live intrauterine gestation with estimated sonographic gestational age of 16 weeks and 2 days.] PROCEDURE: ABDOMEN LTD Right upper quadrant abdominal ultrasound History: abd pain and nausea x 1 day, 16 weeks Comparison: None. Technique: Transabdominal ultrasound images are obtained. Findings: Visualized pancreas is unremarkable. Liver is normal in echogenicity. No focal hepatic masses are identified. Portal flow is hepatopedal. Gallbladder has an unremarkable appearance. Common bile duct caliber is normal measuring 2 mm in diameter. The right kidney measures 11.4 cm in length and is without evidence of obstruction or stone. IVC is patent. IMPRESSION: Unremarkable right upper quadrant ultrasound. Course & Med Decision Making Course & Med Decision Making Pertinent Labs and Imaging studies reviewed. (See chart for details) [3:40 PM:Patient remains stable. She is feeling mostly better. I discussed test results, the need for close follow-up, and return precautions.] Dragon Disclaimer Dragon Disclaimer This electronic medical record was generated, in whole or in part, using a voice recognition dictation system. Departure Departure Impression: Primary Impression: Abdominal pain during Disposition: 01 HOME, SELF-CARE Condition: STABLE Referrals: NO PCP (PCP) Patient Instructions: Abdominal Pain, Abdominal Pain During , Gastritis, Adult Additional Instructions: Follow-up with your SUPPLIER SPECIALIST for further evaluation. Taking Tylenol and Maalox/Mylanta as needed for pain may help improve your symptoms. Return to medical care for any new, or concerning symptoms, development of increasing pain, vomiting, fever, vaginal bleeding or discharge, or any other new, or concerning symptoms. IMELDA VU MD Aug 25, 2018 14:46
[2018-08-25 14:54] LABS: RBC,URINE 0 /HPF (0-2); WBC,URINE 0 /HPF (0-4)
[2018-08-25 14:55] LABS: AMORPHOUS SEDIMENT,UR PRESENT /HPF
[2018-08-25 14:56] LABS: BACTERIA,URINE 0 /HPF (0-FEW); SQUAMOUS EPITHELIAL CELL,UR OCC /LPF
--- NOTE | 2018-08-25 15:24 | RAD ---
Right upper quadrant abdominal ultrasound History: abd pain and nausea x 1 day, 16 weeks Comparison: None. Technique: Transabdominal ultrasound images are obtained. Findings: Visualized pancreas is unremarkable. Liver is normal in echogenicity. No focal hepatic masses are identified. Portal flow is hepatopedal. Gallbladder has an unremarkable appearance. Common bile duct caliber is normal measuring 2 mm in diameter. The right kidney measures 11.4 cm in length and is without evidence of obstruction or stone. IVC is patent. IMPRESSION: Unremarkable right upper quadrant ultrasound. Electronically signed by: Tito Valdez MD (08/25/2018 3:20 PM) [id number]
--- NOTE | 2018-08-25 15:27 | RAD ---
OB ULTRASOUND, Limited Clinical Indication: Abdominal pain since this am Comparison: None. Technique: Multiple grayscale images, color Doppler, and M-mode images of the uterus are obtained. Findings: There is a single intrauterine gestation in variable presentation. The placenta is anterior in location. No obvious evidence of placenta previa. The amount of amniotic fluid appears appropriate. Cervical length is 4.6 cm. Biometrical data: BPD = 3.3 cm for 16 weeks 2 days. HC = 12.7 cm for 16 weeks 3 days. AC = 10.5 cm for 16 weeks 3 days. FL = 2 cm for 16 weeks 0 days. HC/AC ratio = 1.20. Overall, the estimated sonographic gestational age is 16 weeks and 2 days for an estimated date of delivery of February 07, 2019. Estimated weight is 150 +/- 22 grams. The estimated heart rate is 168 beats per minute. A anatomic survey is not performed. Impression: Single live intrauterine gestation with estimated sonographic gestational age of 16 weeks and 2 days. Electronically signed by: Tito Valdez MD (08/25/2018 3:24 PM) [id number]
[2018-08-25 15:37] VITALS: BP 111/64
== END 2018-08-25 15:48 | disposition home or self-care (01) ==
LOC: ER 13:46
DX: O99.89 Other specified diseases and conditions complicating pregnancy, childbirth and the puerperium (principal); R10.13 Epigastric pain; O99.512 Diseases of the respiratory system complicating pregnancy, second trimester; Z3A.16 16 weeks gestation of pregnancy
CPT/HCPCS: 36415; 76705; 76815; 80053; 81001; 83690; 84702; 85025; 99284; J7030

== ENCOUNTER 2018-10-14 09:02 | Observation (INO) | payer OTHER ==
[~2018-10-14] VITALS: Ht 154.9 cm; Wt 90.3 kg
[~2018-10-14 09:02] MED LIST changes: +ALBU2.5V8 INH; -OXYC-327 PO; +OXYC1TAB19 PO; -PROAIR HFA8.5 GM INH
[2018-10-14 09:45] LABS: BILIRUBIN,URINE NEGATIVE (NEG); CLARITY,URINE CLOUDY; COLOR,URINE YELLOW; NITRITE,URINE NEGATIVE (NEG); PROTEIN,URINE NEGATIVE (NEG-TRACE); UROBILINOGEN,URINE 0.2 mg/dL (0.2 mg/dL)
[2018-10-14 09:53] LABS: BARBITURATES NEG (NEG); BENZODIAZEPINES NEG (NEG); CANNABINOIDS POS (NEG); COCAINE NEG (NEG); METHADONE NEG (NEG); OPIATES NEG (NEG); PHENCYCLIDINE NEG (NEG)
[2018-10-14 09:57] LABS: AMPHETAMINE/METHAMPHETAMINE NEG (NEG)
[2018-10-14 10:09] LABS: AMORPHOUS SEDIMENT,UR PRESENT /HPF; BACTERIA,URINE FEW /HPF (0-FEW); RBC,URINE RARE /HPF (0-2); SQUAMOUS EPITHELIAL CELL,UR FEW /LPF; WBC,URINE RARE /HPF (0-4)
[2018-10-14] MEDS ORDERED: CYCL10TA2 PO (11:23)
== END 2018-10-14 11:03 | disposition home or self-care (01) ==
LOC: 3 SO LND 09:02
PROVIDERS: ADMIT Specialist; ATTEND Specialist
DX: O26.892 Other specified pregnancy related conditions, second trimester (principal); M54.9 Dorsalgia, unspecified; Z3A.23 23 weeks gestation of pregnancy
CPT/HCPCS: 80307; 81001; G0378; G0379

== ENCOUNTER 2018-10-14 10:30 | Emergency (ER) | payer OTHER ==
[~2018-10-14] VITALS: Ht 154.9 cm; Wt 90.3 kg
[2018-10-14 10:45] VITALS: BP 128/59
[2018-10-14] MEDS ORDERED: CYCL10TA2 PO (11:23)
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
== END 2018-10-14 11:44 | disposition home or self-care (01) ==
LOC: ER 10:30
DX: O26.892 Other specified pregnancy related conditions, second trimester (principal); S30.0XXA Contusion of lower back and pelvis, initial encounter; Z3A.23 23 weeks gestation of pregnancy; W10.8XXA Fall (on) (from) other stairs and steps, initial encounter; Y93.89 Activity, other specified; Y92.89 Other specified places as the place of occurrence of the external cause; Y99.8 Other external cause status
CPT/HCPCS: 99283

== ENCOUNTER 2018-10-27 20:28 | Emergency (ER) | payer OTHER ==
[~2018-10-27] VITALS: Ht 154.9 cm; Wt 90.3 kg
[~2018-10-27 20:28] MED LIST changes: +CYCL10TA2 PO
[2018-10-27 20:52] VITALS: BP 128/59
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
== END 2018-10-27 21:33 | disposition home or self-care (01) ==
LOC: ER 20:28
DX: O9A.212 Injury, poisoning and certain other consequences of external causes complicating pregnancy, second trimester (principal); T21.22XA Burn of second degree of abdominal wall, initial encounter; X19.XXXA Contact with other heat and hot substances, initial encounter; Y93.89 Activity, other specified; Y92.89 Other specified places as the place of occurrence of the external cause; Y99.8 Other external cause status
CPT/HCPCS: 99281

== ENCOUNTER 2020-06-24 14:42 | Emergency (ER) | payer MEDICAID, OTHER ==
[~2020-06-24] VITALS: Ht 157.5 cm; Wt 93.0 kg
[2020-06-24 14:45] VITALS: BP 139/85
[2020-06-24] MEDS ORDERED: HYDROcodone/APAP 5/325MG 1 TAB TABLET PO ONE (15:00)
[2020-06-24] MEDS ORDERED: CHLO15MO2 SWSP (15:12)
[2020-06-24] MEDS ORDERED: PENI500T PO (15:12)
--- NOTE | 2020-06-24 15:13 | PHYS DOC ---
Past Medical History Past Medical History: Anxiety Additional Past Medical Histor: seasonal allergies Past Surgical History: No Surgical History Smoking Status: Never Smoker Alcohol Use: None Drug Use: None General Adult EDM: Chief Complaint: DENTAL PROBLEM HPI: HPI: Patient is a 24 year old AA female who presents emergency department with complaints of right lower dental pain for the last 5 days. She denies any injury, fever, sore throat, body aches, cough, nausea, vomiting, abdominal pain, rash, or ear pain. Patient states she has tried taking Aleve, tramadol, and ibuprofen with no relief of her pain. Currently, she rates the pain a 10/10 on the pain scale. Review of Systems: Review of Systems: Constitutional: Denies fever or chills. [] HENT: Denies nasal congestion or sore throat. [] Respiratory: Denies cough or shortness of breath. [] GI: Denies abdominal pain, nausea, vomiting, or diarrhea. [] Musculoskeletal: Denies back pain or joint pain. [] Integument: Denies rash. [] Neurologic: Denies headache Lymphatic: Denies swollen glands. [] Psychiatric: Denies depression or anxiety. [] Heart Score: Risk Factors: Risk Factors: DM, Current or recent (<one month) smoker, HTN, HLP, family history of CAD, obesity. Risk Scores: Score 0 - 3: 2.5% MACE over next 6 weeks - Discharge Home Score 4 - 6: 20.3% MACE over next 6 weeks - Admit for Clinical Observation Score 7 - 10: 72.7% MACE over next 6 weeks - Early Invasive Strategies Current Medications: Current Medications Medications (Trade) Dose Ordered Sig/[facility] Start Time Stop Time Status Last Admin Dose Admin Acetaminophen/ Hydrocodone Bitart (Lortab 5/325) 1 tab 1X ONCE 06/24/20 15:00 06/24/20 15:03 DC Allergies: Allergies: Allergies Coded Allergies Type Severity Reaction Last Updated Verified No Known Drug Allergies 10/02/13 No Physical Exam: PE: Constitutional: Well developed, well nourished, no acute distress, non-toxic appearance. [] HENT: Normocephalic, atraumatic, bilateral external ears normal, nose normal; tenderness to palpation of teeth in the right lower quadrant, no visible dental abscess, gingival erythema appreciated [] Eyes: PERRLA, EOMI, conjunctiva normal, no discharge. [] Neck: Normal range of motion, supple, no stridor. [] Cardiovascular:Heart rate regular rhythm Lungs & Thorax: Respirations even and unlabored, no retractions, no respiratory distress Skin: Warm, dry, no erythema, no rash. [] Extremities: No cyanosis, ROM intact, no edema. [] Neurologic: Alert and oriented X 3, no focal deficits noted. [] Psychologic: Affect normal, judgement normal, mood normal. [] Current Patient Data: Vital Signs: Vital Signs Date Time Temp Pulse Resp B/P (MAP) Pulse Ox O2 Delivery O2 Flow Rate FiO2 06/24/20 14:45 98.9 102 15 139/85 (103) 99 Room Air 98.9 EKG: EKG: [] Radiology/Procedures: Radiology/Procedures: [] Course & Med Decision Making: Course & Med Decision Making Pertinent Labs and Imaging studies reviewed. (See chart for details) [] Dragon Disclaimer: Dragon Disclaimer: This electronic medical record was generated, in whole or in part, using a voice recognition dictation system. Departure Departure Impression: Primary Impression: Pain, dental Disposition: HOME, SELF-CARE Condition: STABLE Referrals: NO PCP (PCP) Patient Instructions: Dental Pain, [id number] Additional Instructions: Fill prescription(s) and use as directed. Follow up with dentist using the referral list provided. Return to the ER if symptoms worsen. Scripts Chlorhexidine Gluconate (PERIDEX) 15 Ml Mouthwash 15 ML SWSP BID for 10 Days, #1 BOT 0 Refills [place] your teeth before use of this medication and rinse thoroughly after using the medication as it may stain your teeth. Prov: JOSE SHARP BILLET EXAMINER 06/24/20 Penicillin V Potassium (PENICILLIN V POTASSIUM) 500 Mg Tablet 1 TAB PO QID for 10 Days, #40 TAB 0 Refills Prov: JOSE SHARP APRN 06/24/20 Justicifation of Admission Dx: Justifications for Admission: Justification of Admission Dx: N/A JOSE SHARP BILLET EXAMINER Jun 24, 2020 15:13
== END 2020-06-24 15:25 | disposition home or self-care (01) ==
LOC: ER 14:42
DX: K08.89 Other specified disorders of teeth and supporting structures (principal); F41.9 Anxiety disorder, unspecified
CPT/HCPCS: 99283